=== PATIENT | female | born 1975 | race Caucasian/White ===

== ENCOUNTER 2017-09-06 11:24 | Emergency (ER) | payer MEDICARE, MEDICAID ==
[2017-09-06] MEDS ORDERED: Ondansetron ODT 4 MG TAB ONE (13:41)
== END 2017-09-06 14:40 | disposition home or self-care (01) ==
LOC: ERS 11:24
DX: R11.10 Vomiting, unspecified (principal); B20 Human immunodeficiency virus [HIV] disease; Z79.899 Other long term (current) drug therapy
CPT/HCPCS: 99283; Q0162

== ENCOUNTER 2017-11-09 18:05 | Emergency (ER) | payer MEDICARE, MEDICAID ==
--- NOTE | 2017-11-09 18:53 | RAD ---
4 VIEWS LEFT KNEE: Date: 11/09/17 HISTORY: Patient fell last week after knee gave out. Patient complains of bruising and pain to left knee. FINDINGS: There is a left total knee prosthesis. No hardware complication is seen. No fracture or dislocation i s seen. There is subcutaneous soft tissue swelling seen anterior to the knee. Small joint effusion is present in a suprapatellar location. IMPRESSION: 1. Left total knee prosthesis without evidence of hardware complication or fracature. 2. Small joint effusion suprapatellar location. 3. Mild subcutaneous edema anterior to the knee. POS: [facility]
== END 2017-11-09 19:10 | disposition home or self-care (01) ==
LOC: ERS 18:05
DX: S80.02XA Contusion of left knee, initial encounter (principal); B20 Human immunodeficiency virus [HIV] disease; Z79.899 Other long term (current) drug therapy; W19.XXXA Unspecified fall, initial encounter

== ENCOUNTER 2018-01-08 17:36 | Emergency (ER) | payer MEDICARE, MEDICAID | END 2018-01-08 18:12 | disposition home or self-care (01) | LOC: ERS 17:36 | DX: H10.12 Acute atopic conjunctivitis, left eye (principal); F32.9 Major depressive disorder, single episode, unspecified; Z21 Asymptomatic human immunodeficiency virus [HIV] infection status | CPT/HCPCS: 99282 ==

== ENCOUNTER 2019-08-02 11:14 | Emergency (ER) | payer MEDICARE, MEDICAID ==
[2019-08-02] MEDS ORDERED: Morphine 4 MG/ML VIAL ONE (12:14)
[2019-08-02] MEDS ORDERED: CEFAZOLIN 1 GM VIAL ONE (12:52)
[2019-08-02] MEDS ORDERED: Adacel (T-DAP) 0.5 ML SYRINGE ONE (12:53)
[2019-08-02] MEDS ORDERED: Lidocaine 1% (PF) 30 ML VIAL ONE ×3 (12:57→13:46)
[2019-08-02] MEDS ORDERED: Ondansetron PF 4 MG/2 ML Vial ONE (13:04)
== END 2019-08-02 17:45 | disposition home or self-care (01) ==
LOC: ERS 11:14
DX: S41.151A Open bite of right upper arm, initial encounter (principal); S61.256A Open bite of right little finger without damage to nail, initial encounter; S71.112A Laceration without foreign body, left thigh, initial encounter; S61.512A Laceration without foreign body of left wrist, initial encounter; S91.011A Laceration without foreign body, right ankle, initial encounter; S81.811A Laceration without foreign body, right lower leg, initial encounter; F32.9 Major depressive disorder, single episode, unspecified; Z87.442 Personal history of urinary calculi; W54.0XXA Bitten by dog, initial encounter
CPT/HCPCS: 12007; 12035; 90471; 90715; 96365; 96375; J0690; J2001; J2270; J2405

== ENCOUNTER 2021-07-07 17:57 | Emergency (ER) | payer MEDICARE, MEDICAID | END 2021-07-07 20:37 | disposition home or self-care (01) | LOC: ERS 17:57 | DX: J06.9 Acute upper respiratory infection, unspecified (principal); J01.90 Acute sinusitis, unspecified; Z21 Asymptomatic human immunodeficiency virus [HIV] infection status | CPT/HCPCS: 99283 ==